=== PATIENT | male | born 1990 | race African-American/Black ===

== ENCOUNTER 2024-06-19 06:15 | Emergency (ER) | payer BC, SELFPAY ==
[2024-06-19 06:30] VITALS: BP 156/94; PULSE 71; RESP 16; TEMP 36.6; O2SAT 100
[2024-06-19 06:35] VITALS: PULSE 75
--- NOTE | 2024-06-19 06:36 | ECG_ITS ---
Test Date: 2024-06-19 06:50:26 Measurements Intervals [place] Rate: 77 P: 52 NV: 157 QRS: -3 QRSD: 105 T: 29 QT: 382 QTc: 433 Interpretive Statements SINUS RHYTHM DELAYED PRECORDIAL R/S TRANSITION BORDERLINE T WAVE ABNORMALITY- INF/LAT LEADS BORDERLINE ECG No previous ECG available for comparison Electronically Signed On 06-19-2024 07:46:11 CDT by Dennis Gramajo D.O.
[2024-06-19 06:46] VITALS: BP 147/91; PULSE 76; RESP 14; O2SAT 100
[2024-06-19 06:49] LABS: Basophils Percent Auto 0.5 % (0.2-1.2); Eosinophils Absolute Auto 0.2 K/mm3 (0-0.3); Hematocrit 44.3 % (42.0-52.0); Hemoglobin 14.2 g/dL (14.0-18.0); Immature Granulocyte Absolute 0.04 K/mm3 (0.00-0.031); Immature Granulocyte Percent A 0.5 % (0-0.5); Lymphocytes Absolute Auto 2.42 K/mm3 (0.9-3.2); Lymphocytes Percent Auto 28.3 % (18.3-44.2); Mean Corpuscular HGB Conc 32.1 g/dl (32-36); Mean Corpuscular Volume 87.2 fl (80-100); Mean Platelet Volume 8.5 fl (7.4-10.4); Monocytes Absolute Auto 0.9 K/mm3 (0.1-0.6); Neutrophils Percent Auto 58.7 % (45.5-73.1); Platelet Count Result 345 k/mm3 (150-375); Red Blood Count 5.08 M/mm3 (4.6-6.20); White Blood Count 8.5 K/mm3 (4.5-10.0)
[2024-06-19 06:57] LABS: Alanine Aminotransferase 28 U/L (6-50); Albumin Level 4.8 g/dL (3.5-5.1); Alkaline Phosphatase 78 U/L (38-126); Anion Gap 11 mmol/L (4-12); Aspartate Amino Transferase 34 U/L (17-59); Bilirubin,Total 0.5 mg/dL (0.2-1.3); Blood Urea Nitrogen 13 mg/dL (9-20); Calcium 8.7 mg/dL (8.4-10.2); Carbon Dioxide 25 mmol/L (22-30); Chloride 101 mmol/L (98-107); Estimated CRCL calculation 108 ml/min; Estimated Glomerular Filt Rate > 60; Glucose 113 mg/dL (65-110); Potassium 3.7 mmol/L (3.4-5.0); Sodium 137 mmol/L (137-145)
--- NOTE | 2024-06-19 07:35 | ED.DIZZY ---
HPI - Dizziness General Chief Complaint: Dizziness Stated Complaint: chills Time Seen by Provider: 06/19/24 06:54 History of Present Illness HPI Narrative: 34-year-old male presenting to the emergency department for evaluation for having some chills and body aches this morning. Patient denies any other pain complaints Related Data Allergies Allergy/AdvReac Type Severity Reaction Status Date / Time No Known Allergies Allergy Verified 06/19/24 06:34 Review of Systems Review of Systems: All systems reviewed & are unremarkable except as noted in HPI and below Exam Narrative: APPEARANCE: Well appearing, no pain, no distress, well-nourished. HEAD: normocephalic, atraumatic. EYES: PERRLA/EOMI, conjunctivae clear. NOSE: Normal no drainage EARS:TMS clear with good light reflex. THROAT: Pharynx clear, no exudate. NECK: Supple. No adenopathy, no masses. RESPIRATORY: Airway patent, respirations nonlabored. Clear to auscultation bilaterally, no rales, rhonchi, wheezing. CARDIOVASCULAR: Regular rate and rhythm without murmurs rubs or gallops. ABDOMINAL: Soft, nontender, nondistended, normal bowel sounds MUSCULOSKELETAL: Moves all extremities. Strength/ROM intact, No edema, No calf tenderness. NEURO: Alert. Cranial nerves II through XII intact. Grossly intact SKIN: Warm, dry. Normal Color Course Course Emergency Course: Patient was updated on the results and plan for treatment for home. Vital Signs Vital signs: Vital Signs Temperature 98 F 06/19/24 06:30 Pulse Rate 71 06/19/24 06:30 Respiratory Rate 16 06/19/24 06:30 Blood Pressure 156/94 H 06/19/24 06:30 Pulse Oximetry 100 06/19/24 06:30 Oxygen Delivery Room Air 06/19/24 06:30 Temperature 98 F 06/19/24 06:30 Pulse Rate 73 06/19/24 09:01 Respiratory Rate 16 06/19/24 09:01 Blood Pressure 129/87 06/19/24 09:01 Pulse Oximetry 98 06/19/24 09:01 Oxygen Delivery Room Air 06/19/24 06:30 MDM - Dizziness MDM Narrative Medical decision making narrative: 34-year-old male presenting to the emergency department for evaluation for chills and body aches. Patient is afebrile with no leukocytosis and a stable hemoglobin of 14.2. Patient has no acute electrolyte abnormalities. Patient was negative for influenza RSV but was positive for COVID. Differential Diagnosis Differential diagnosis: Likely adverse reaction to drug, benign paroxysmal positional vertigo and orthostatic hypotension Lab Data Attestation: I reviewed the patient's lab results. 06/19/24 06:42 06/19/24 06:42 Labs: Lab Results 06/19/24 06/19/24 Range/Units 06:42 07:57 WBC 8.5 (4.5-10.0) K/mm3 RBC 5.08 (4.6-6.20) M/mm3 Hgb 14.2 (14.0-18.0) g/dL Hct 44.3 (42.0-52.0) % MCV 87.2 (80-100) fl MCH 28.0 (26-34) pg MCHC 32.1 (32-36) g/dl RDW 13.0 (11.5-14.5) % Plt Count 345 (150-375) k/mm3 MPV 8.5 (7.4-10.4) fl Immature Gran % (Auto) 0.5 (0-0.5) % Neut % (Auto) 58.7 (45.5-73.1) % Lymph % (Auto) 28.3 (18.3-44.2) % M[place]racken % (Auto) 10.0 H (2.6-8.5) % Eos % (Auto) 2.0 (0-4.4) % Baso % (Auto) 0.5 (0.2-1.2) % Lymph # (Auto) 2.42 (0.9-3.2) K/mm3 M[place]racken # (Auto) 0.9 H (0.1-0.6) K/mm3 Eos # (Auto) 0.2 (0-0.3) K/mm3 Baso # (Auto) 0.0 (0.0-0.1) K/mm3 Abs Immat Gran (auto) 0.04 H (0.00-0.031) K/mm3 Absolute Neuts (auto) 5.0 (1.3-6.7) K/mm3 Absolute Nucleated RBC 0.000 (0.0-0.012) K/mm3 Nucleated RBC % 0.0 (0.0-0.2) % Sodium 137 (137-145) mmol/L Potassium 3.7 (3.4-5.0) mmol/L Chloride 101 (98-107) mmol/L Carbon Dioxide 25 (22-30) mmol/L Anion Gap 11 (4-12) mmol/L BUN 13 (9-20) mg/dL Creatinine 1.10 (0.7-1.3) mg/dL Estim Creat Clear Calc 108 ml/min Estimated GFR > 60 (59 - ) Glucose 113 H (65-110) mg/dL Calcium 8.7 (8.4-10.2) mg/dL Total Bilirubin 0.5 (0.2-1.3) mg/dL AST 34 (17-59) U/L ALT 28 (6-50) U/L
[2024-06-19 08:41] LABS: Influenza A QL RT-PCR Negative (Negative); Influenza B QL RT-PCR Negative (Negative); RSV RNA, RT-PCR Negative (Negative); SARS-CoV-2 RNA PCR Positive (Negative)
[2024-06-19 09:01] VITALS: BP 129/87; PULSE 73; RESP 16; O2SAT 98
== END 2024-06-19 09:08 | disposition home or self-care (01) ==
PROVIDERS: Student in an Organized Health Care Education/Training Program; Emergency Provider Emergency Medicine
DX: U07.1 COVID-19 (principal); R94.31 Abnormal electrocardiogram [ECG] [EKG]
CPT/HCPCS: 36415; 80053; 85025; 87637; 93005; 99284